=== PATIENT | male | born 1975 | race African-American/Black ===

== ENCOUNTER 2018-12-08 18:01 | Inpatient (IN) | payer OTHER ==
[~2018-12-08] VITALS: Ht 180.3 cm; Wt 86.3 kg
[2018-12-13 13:31] VITALS: BP 144/94
== END 2018-12-13 19:02 | DRG 682 ==
LOC: ED 18:44 → EDIP 19:15 → 5SO 23:04 → 3NE 12-10 15:45
PROVIDERS: ADMIT Family Medicine; ATTEND Family Medicine
DX: N17.9 Acute kidney failure, unspecified (principal); I21.A1 Myocardial infarction type 2; M62.82 Rhabdomyolysis; I24.8 Other forms of acute ischemic heart disease; D72.828 Other elevated white blood cell count; E83.39 Other disorders of phosphorus metabolism; E83.42 Hypomagnesemia; E86.0 Dehydration; I37.1 Nonrheumatic pulmonary valve insufficiency; E88.09 Other disorders of plasma-protein metabolism, not elsewhere classified; T67.5XXA Heat exhaustion, unspecified, initial encounter; X30.XXXA Exposure to excessive natural heat, initial encounter; Z79.82 Long term (current) use of aspirin
CPT/HCPCS: 36415; 78452; 80048; 80053; 80061; 80076; 82550; 83735; 84100; 84443; 84484; 85025; 85610; 93005; 93017; 93306; 96360; 96361; 99285; G0378; J2785; A9502; C9898; J3475; J7030; J7120